=== PATIENT | female | born 1950 | race Caucasian/White ===

== ENCOUNTER → 2017-04-10 | Outpatient (CLI) | payer OTHER ==
[~2017-04-10] MED LIST: NS 100 ML IV 100 ML IV ONE
--- NOTE | 2017-04-10 11:53 | CT ---
Indication: Abdominal pain and hematuria. Exam: CT abdomen and pelvis with contrast. Technique: Axial spiral images were obtained from lung bases through the pubic symphysis after admini stration of IV and oral contrast. Automated dose control was utilized. Findings: There are mild linear densities along the lung bases. The liver is mildly enlarged with fat ty replacement throughout. No focal lesion is seen. The gallbladder has been removed with clips in th e gallbladder fossa. The bile ducts and pancreas are normal. The spleen is unremarkable. The adrenals are normal. The kidneys are normal size and function normally with no hydronephrosis, renal stone, o r mass. The ureters are normal caliber with no adenopathy or ascites . The uterus has been removed wi th no adnexal mass or free fluid. There are diverticula along the colon with no pericolonic inflammat ion. The appendix is not well visualized with no pericecal inflammation . There are degenerative monroy ges seen throughout the spine with no aggressive osseous lesion. Impression: Mild hepatomegaly with fatty replacement throughout . Status post cholecystectomy with no acute abnormality seen. No hydronephrosis or renal stones and no urinary obstruction . Mild diverticulosis of the sigmoid colon with no pericolonic inflammation . Status post hysterectomy with no pelvic mass. Reported By:
== END | disposition home or self-care (01) | DRG 392 ==
LOC: RAD 10:01
PROVIDERS: ATTEND Internal Medicine
DX: K29.70 Gastritis, unspecified, without bleeding (principal); K31.84 Gastroparesis; R10.84 Generalized abdominal pain; R31.9 Hematuria, unspecified; K76.0 Fatty (change of) liver, not elsewhere classified; K57.90 Diverticulosis of intestine, part unspecified, without perforation or abscess without bleeding
CPT/HCPCS: 74177; A4222

== ENCOUNTER → 2017-05-28 | Outpatient (CLI) | payer OTHER ==
[2017-05-28 08:25] LABS: BASOPHILS % (AUTO) 0.3 % (0.2-1.0); EOSINOPHILS # (AUTO) 0.2 x10^3/uL (0.0-0.2); EOSINOPHILS % (AUTO) 3.1 % (0.9-2.9); HEMATOCRIT 39.3 % (36.0-47.0); HEMOGLOBIN 12.9 g/dL (12.0-16.0); LYMPHOCYTES # (AUTO) 1.9 X10^3/uL (1.3-2.9); LYMPHOCYTES % (AUTO) 26.1 % (21.0-51.0); MEAN CORPUSCULAR HEMOGLOBIN 26.8 pg (27.0-34.0); MEAN CORPUSCULAR VOLUME 81.2 fL (80.0-100.0); MEAN PLATELET VOLUME 7.8 fL (7.4-11.0); MONOCYTES # (AUTO) 0.4 x10^3/uL (0.3-0.8); NEUTROPHILS # (AUTO) 4.6 x10^3/uL (2.2-4.8); NEUTROPHILS % (AUTO) 64.5 % (42.0-75.0); PLATELET COUNT 244 X10^3/uL (150.0-450.0); RED BLOOD COUNT 4.83 X10^6/uL (3.5-5.4); RED CELL DISTRIBUTION WIDTH 13.9 % (11.6-16.5); WHITE BLOOD COUNT 7.1 X10^3/uL (3.6-10.0)
[2017-05-28 08:41] LABS: ALBUMIN 4.2 g/dL (3.4-5.0); BILIRUBIN,DIRECT 0.19 mg/dL (0-0.2); TOTAL PROTEIN 7.2 g/dL (6.4-8.2)
--- NOTE | 2017-05-28 10:28 | US ---
History: Abdominal pain and abnormal LFTs. Exams: Diagnostic ultrasound exam of the liver. Technique: GRAYSCALE & DOPPLER IMAGES OF THE LIVER PERFORMED. COMPARISON: Abdominopelvic CT exam dated 04/10/2017. Findings: The liver is normal in size and echogenic in its appearance/echotecture. The liver measures 15 cm in greatest cross-sectional dimension. No dominant or hypoechoic liver mass lesions are apprec iated. The gallbladder is surgically absent. The right kidney is grossly unremarkable. The right kidn ey is normal in size as well. No pathologic intrahepatic biliary duct dilatation is seen. The common bile duct measures within normal limits for age at 9 mm. There is no surrounding ascites or loculated abdominal fluid collections observed. Impression: Liver is normal in size & echogenic/fatty in echotecture. Status post cholecystectomy. Patulous CBD = 9 mm. No dominant liver mass lesions or biliary duct dilatation seen. No ascites is evident. No other abnormalities appreciated. Reported By:
[2017-05-30 21:55] LABS: HEPATITIS A ANTIBODY IGM Negative (Negative)
[2017-06-01 06:20] LABS: HEPATITIS B CORE IGM Negative (Negative); HEPATITIS B SURFACE ANTIGEN Negative (Negative)
[2017-06-01 06:21] LABS: ANTI-NUCLEAR ANTIBODY TEST None Detected (None Detected)
== END ==
LOC: RAD 07:53
PROVIDERS: ATTEND Internal Medicine Gastroenterology
DX: K76.0 Fatty (change of) liver, not elsewhere classified (principal); D64.89 Other specified anemias
CPT/HCPCS: 36415; 76705; 80074; 80076; 82103; 82390; 82525; 82728; 83540; 83550; 84466; 85025; 85610; 86256; 86308

== ENCOUNTER 2020-10-03 17:21 | Inpatient (IN) ==
[2020-10-03 20:59] LABS: BASOPHILS # (AUTO) 0.1 X10^3/uL (0.0-0.1); BASOPHILS % (AUTO) 0.8 % (0.2-1.0); EOSINOPHILS # (AUTO) 0.3 x10^3/uL (0.0-0.2); EOSINOPHILS % (AUTO) 3.1 % (0.9-2.9); HEMATOCRIT 37.5 % (36.0-47.0); HEMOGLOBIN 12.2 g/dL (12.0-16.0); LYMPHOCYTES # (AUTO) 2.2 X10^3/uL (1.3-2.9); MEAN CORPUSCULAR HEMOGLOBIN 25.8 pg (27.0-34.0); MEAN CORPUSCULAR HGB CONC 32.5 g/dL (33.0-35.0); MEAN CORPUSCULAR VOLUME 79.5 fL (80.0-100.0); MEAN PLATELET VOLUME 7.7 fL (7.4-11.0); MONOCYTES # (AUTO) 0.5 x10^3/uL (0.3-0.8); MONOCYTES % (AUTO) 5.1 % (0.0-13.0); NEUTROPHILS # (AUTO) 6.4 x10^3/uL (2.2-4.8); PLATELET COUNT 218 X10^3/uL (150.0-450.0); RED BLOOD COUNT 4.71 X10^6/uL (3.5-5.4); RED CELL DISTRIBUTION WIDTH 15.3 % (11.6-16.5); WHITE BLOOD COUNT 9.5 X10^3/uL (3.6-10.0)
[2020-10-03 21:12] LABS: BLOOD UREA NITROGEN 17 mg/dL (7-18); CALCIUM 8.6 mg/dL (8.5-10.1); CARBON DIOXIDE 21.2 mmol/L (21-32); CHLORIDE 101 mmol/L (98-107); COR NA(FOR HYPERGLY) 144 mmol/L (136-145); CREATININE 1.94 mg/dL (0.55-1.02); SODIUM 137 mmol/L (136-145); eGFR NON BLACK RACES 27 (>60)
--- NOTE | 2020-10-03 21:19 | RAD ---
Lumbar spine three viewsIndication: Lower back painFINDINGSCholecystectomy clips noted. Vertebral body heights are normal, without cortical lucency or malalignment. Disc space narrowing is most pronounced at L5-S1.IMPRESSIONLumbar spine degenerative change without acute osseous abnormality, within limits of radiography.Electronically signed by: REINA ISLAS (Oct 03, 2020 21:17:50)
--- NOTE | 2020-10-03 21:21 | RAD ---
Acute abdomen series-three views supine upright and chestIndication: Abdominal pain and diarrheaCOMPARISONFebruary 22017 CT report.FINDINGSHeart size is prominent. There is no pneumothorax, effusion or dense consolidation. Cholecystectomy clips noted. Gas and stool are seen in the colon. No dilated loop of small bowel identified. Patient zipper and bra clips obscure mild detail. No abnormal calcific density seen.IMPRESSIONNo convincing high-grade obstruction, free air or pneumatosis seen. Heart size is prominent. Overlying clothing material obscures minimal detail.Electronically signed by: REINA ISLAS (Oct 03, 2020 21:19:19)
[2020-10-03 21:46] LABS: CREATINE KINASE 69 Units/L (26-192); CREATINE KINASE MB 1.4 ng/mL (0-4.0)
[2020-10-03 21:47] LABS: TROPONIN I < 0.02 ng/mL (0-1.5)
[2020-10-03] MEDS ORDERED: PROVENTIL NEB TX 0.083% 2.5MG/ 3ML NEB PRN (21:59)
[2020-10-03] MEDS: HumuLIN R SUBCUT PRN (22:35)
[2020-10-03] MEDS: NS 1000 ML 1,000 ML IV SCH (22:44)
[2020-10-03 22:56] VITALS: BMI 31.8
[2020-10-03] MEDS: NEURONTIN CAP 300 MG PO SCH (23:01)
[2020-10-03] MEDS: CRESTOR TAB 10 MG PO SCH (23:01)
[2020-10-03] MEDS: PriLOSEC PO SCH (23:01)
[2020-10-03] MEDS: ULTRAM PO SCH (23:01)
[2020-10-03] MEDS: INVANZ INJ 1 GM VIAL 1 GM in NS 100 ML IV + SPIKE MINIBAG* 100 ML IV SCH (23:03)
[2020-10-04 00:57] LABS: BILIRUBIN,URINE NEGATIVE (NEGATIVE); BLOOD/HEMOGLOBIN,URINE 1+ (NEGATIVE); GLUCOSE, URINE 4+ (NEGATIVE); KETONES,URINE NEGATIVE (NEGATIVE); LEUKOCYTE ESTERASE ,URINE 2+ (NEGATIVE); NITRITES,URINE POSITIVE (NEGATIVE); PROTEIN,URINE 1+ (NEGATIVE); UROBILINOGEN,URINE NORMAL (NORMAL)
[2020-10-04 01:10] LABS: APPEARANCE,URINE CLEAR (CLEAR); BACTERIA,URINE 1+ /HPF (NEGATIVE); COLOR,URINE STRAW (YELLOW); RBC,URINE NONE SEEN /HPF (0-3); SQUAMOUS EPITHELIAL CELL,UR NEGATIVE /HPF (NEGATIVE)
[2020-10-04] MEDS ORDERED: GLUCOPHAGE ONE ×2 (06:01→16:47)
[2020-10-04] MEDS: GLUCOPHAGE PO SCH ×3 (06:03→18:55)
[2020-10-04] MEDS: SYNTHROID 88 mcg TAB PO SCH (06:03)
[2020-10-04 06:14] LABS: BASOPHILS # (AUTO) 0.1 X10^3/uL (0.0-0.1); BASOPHILS % (AUTO) 0.9 % (0.2-1.0); EOSINOPHILS # (AUTO) 0.4 x10^3/uL (0.0-0.2); EOSINOPHILS % (AUTO) 5.2 % (0.9-2.9); HEMOGLOBIN 11.3 g/dL (12.0-16.0); MEAN CORPUSCULAR HEMOGLOBIN 25.9 pg (27.0-34.0); MEAN CORPUSCULAR HGB CONC 33.3 g/dL (33.0-35.0); MEAN CORPUSCULAR VOLUME 77.7 fL (80.0-100.0); MEAN PLATELET VOLUME 7.5 fL (7.4-11.0); MONOCYTES # (AUTO) 0.5 x10^3/uL (0.3-0.8); MONOCYTES % (AUTO) 7.1 % (0.0-13.0); NEUTROPHILS # (AUTO) 4.3 x10^3/uL (2.2-4.8); NEUTROPHILS % (AUTO) 59.8 % (42.0-75.0); PLATELET COUNT 191 X10^3/uL (150.0-450.0); RED BLOOD COUNT 4.37 X10^6/uL (3.5-5.4); RED CELL DISTRIBUTION WIDTH 15.2 % (11.6-16.5); WHITE BLOOD COUNT 7.3 X10^3/uL (3.6-10.0)
[2020-10-04 06:39] LABS: BLOOD UREA NITROGEN 15 mg/dL (7-18); CALCIUM 8.7 mg/dL (8.5-10.1); CARBON DIOXIDE 25.3 mmol/L (21-32); CHLORIDE 109 mmol/L (98-107); CREATININE 1.37 mg/dL (0.55-1.02); SODIUM 144 mmol/L (136-145); eGFR NON BLACK RACES 40 (>60)
[2020-10-04] MEDS ORDERED: COZAAR ONE (07:48)
[2020-10-04] MEDS: ULTRAM PO SCH ×4 (08:18→20:37)
[2020-10-04] MEDS: PriLOSEC PO SCH ×2 (08:20→20:37)
[2020-10-04] MEDS: NEURONTIN CAP 300 MG PO SCH ×2 (08:20→20:36)
--- NOTE | 2020-10-04 10:22 | DR.UPDATE ---
H&P Update History and Physical Update: History and Physical reviewed and patient examined. Changes noted: Yes with the following: TIME SPENT ON CLINICAL ASSESSMENT, REVIEWING LABS AND IMAGING, DECISION MAKING, AND DOCUMENTATION GREATER THAN 75 MINUTES. HAS BEEN TREATED OUTPATIENT FOR A URINARY TRACT INFECTION SINCE 09/12/2020. SHE HAS TAKEN MACROBID 100MG BID X 10 DAYS AND CIPRO 500MG BID X 10 DAYS WITHOUT IMPROVEMENT IN SYMPTOMS. SHE PRESENTED TO THE OFFICE ON 10/03 WITH COMPLAINTS OF GENERALIZED WEAKNESS, LOWER ABDOMINAL PAIN, LOWER BACK PAIN, DIZZINESS, NAUSEA, DECREASED ORAL INTAKE, AND DIARRHEA. WHILE IN THE OFFICE, SHE WAS NOTED TO BE HYPOTENSIVE WITH BP 99/62. HER PMH INCLUDES HYPERLIPIDEMIA, ASTHMA, GERD, GASTROPARESIS, DM II, HYPOTHYROIDISM, CHOLECYSTECTOMY, AND HYSTERECTOMY. DUE TO FAILED OUTPATIENT TREATMENT, WE ADMITTED PATIENT TO THE HOSPITAL FOR FURTHER EVALUATION AND TREATMENT OF UTI, GENERALIZED WEAKNESS, DIZZINESS, ABDOMINAL PAIN. ON ADMISSION, VITALS WERE 98.1-81-18-97%-160/70. LABS WERE OBTAINED. ABNORMAL LAB VALUES INCLUDE THE FOLLOWING: CREATININE 1.94, GFR 27, GLUCOSE 394. URINALYSIS REVEALED: WBC 10-20, RBC NONE SEEN, LEUKOCYTES 2+, BACTERIA 1+, NITRITES POSITIVE, OCCULT BLOOD 1+, GLUCOSE 4+, PROTEIN 1+. URINE AND BLOOD CULTURES WERE SET UP. COVID, INFLUENZA, AND RSV NEGATIVE. ABDOMINAL XRAY OBTAINED AND REVEALED: No convincing high-grade obstruction, free air or pneumatosis seen. Heart size is prominent. Overlying clothing material obscures minimal detail. LUMBAR XRAY REVEALED: Lumbar spine degenerative change without acute osseous abnormality, within limits of radiography. EKG REVEALED: SINUS RHYTHM WITH HR 82. SHE WAS STARTED ON NORMAL SALINE AT 80 ML/HR, INVANZ 1G IV DAILY, HUMULIN R SLIDING SCALE, SYNTHROID 88MCG PO DAILY, COZAAR 50MG PO DAILY, GLUCOPHAGE 500MG PO BID WM, OTBS ACHS, PRILOSEC 40MG PO BID, CRESTOR 10MG PO HS, ULTRAM 50MG PO QID, GABAPENTIN 300MG PO BID, AND ALBUTEROL NEB TX QID. WE WILL OBTAIN STOOL STUDIES OTHERWISE, WE PLAN TO FOLLOW UP WITH AM LABS AND CONTINUE TO MONITOR. TIME SPENT ON CLINICAL ASSESSMENT, REVIEWING LABS AND IMAGING, DECISION MAKING, AND DOCUMENTATION GREATER THAN 75 MINUTES. Prescription drug monitoring program results: PDMP was not reviewed H&P Reviewed: Yes Patient was examined?: Yes
[2020-10-04 11:38] LABS: ALANINE AMINOTRANSFERASE 24 Units/L (12-78); ALBUMIN 3.9 g/dL (3.4-5.0); ALKALINE PHOSPHATASE 85 Units/L (46-116); ASPARTATE AMINO TRANSFERASE 22 Units/L (15-37); TOTAL PROTEIN 6.9 g/dL (6.4-8.2)
[2020-10-04 11:44] LABS: ALANINE AMINOTRANSFERASE 21 Units/L (12-78); ALBUMIN 3.5 g/dL (3.4-5.0); ALKALINE PHOSPHATASE 79 Units/L (46-116); ASPARTATE AMINO TRANSFERASE 15 Units/L (15-37); TOTAL PROTEIN 6.3 g/dL (6.4-8.2)
[2020-10-04] MEDS: COZAAR PO SCH (15:14)
[2020-10-04] MEDS: SNACK - Diabetic Appropriate PO SCH (20:36)
[2020-10-04] MEDS: CRESTOR TAB 10 MG PO SCH (20:36)
[2020-10-04] MEDS ORDERED: LANTUS SC SCH (21:00)
[2020-10-04] MEDS: NS 1000 ML 1,000 ML IV SCH (22:48)
[2020-10-04] MEDS: INVANZ INJ 1 GM VIAL 1 GM in NS 100 ML IV + SPIKE MINIBAG* 100 ML IV SCH (22:48)
[2020-10-05] MEDS: SYNTHROID 88 mcg TAB PO SCH (05:44)
[2020-10-05 06:11] LABS: BASOPHILS # (AUTO) 0.1 X10^3/uL (0.0-0.1); BASOPHILS % (AUTO) 1.1 % (0.2-1.0); EOSINOPHILS # (AUTO) 0.4 x10^3/uL (0.0-0.2); EOSINOPHILS % (AUTO) 7.8 % (0.9-2.9); HEMATOCRIT 33.2 % (36.0-47.0); LYMPHOCYTES # (AUTO) 1.9 X10^3/uL (1.3-2.9); LYMPHOCYTES % (AUTO) 32.7 % (21.0-51.0); MEAN CORPUSCULAR HEMOGLOBIN 25.9 pg (27.0-34.0); MEAN CORPUSCULAR VOLUME 78.6 fL (80.0-100.0); MEAN PLATELET VOLUME 7.5 fL (7.4-11.0); MONOCYTES # (AUTO) 0.4 x10^3/uL (0.3-0.8); NEUTROPHILS # (AUTO) 2.9 x10^3/uL (2.2-4.8); NEUTROPHILS % (AUTO) 51.4 % (42.0-75.0); PLATELET COUNT 166 X10^3/uL (150.0-450.0); RED BLOOD COUNT 4.23 X10^6/uL (3.5-5.4); RED CELL DISTRIBUTION WIDTH 15.8 % (11.6-16.5); WHITE BLOOD COUNT 5.7 X10^3/uL (3.6-10.0)
[2020-10-05 06:26] LABS: ALANINE AMINOTRANSFERASE 22 Units/L (12-78); ALBUMIN 3.3 g/dL (3.4-5.0); ALKALINE PHOSPHATASE 79 Units/L (46-116); ASPARTATE AMINO TRANSFERASE 18 Units/L (15-37); BLOOD UREA NITROGEN 11 mg/dL (7-18); CALCIUM 8.1 mg/dL (8.5-10.1); CARBON DIOXIDE 26.1 mmol/L (21-32); CHLORIDE 111 mmol/L (98-107); COR CA(FOR HYPOALB) 8.7 mg/dL (8.5-10.1); COR NA(FOR HYPERGLY) 146 mmol/L (136-145); CREATININE 1.09 mg/dL (0.55-1.02); SODIUM 144 mmol/L (136-145); TOTAL PROTEIN 5.9 g/dL (6.4-8.2); eGFR NON BLACK RACES 52 (>60)
[2020-10-05] MEDS: NS 1000 ML 1,000 ML IV SCH ×3 (06:56→13:41)
[2020-10-05] MEDS: NEURONTIN CAP 300 MG PO SCH ×2 (08:50→21:46)
[2020-10-05] MEDS: COZAAR PO SCH (08:50)
[2020-10-05] MEDS: PriLOSEC PO SCH ×2 (08:51→21:47)
[2020-10-05] MEDS: ULTRAM PO SCH ×4 (08:51→21:47)
--- NOTE | 2020-10-05 09:57 | PCM.PROG ---
Progress Note - Progress Note for Day of Date of Exam: 10/05/20 - Subjective Subjective: WAS ADMITTED FOR TREATMENT OF UTI, ABDOMINAL PAIN, GENERALIZED WEAKNESS, DIARRHEA, DIZZINESS. TODAY, SHE IS ALERT AND ORIENTED, LYING IN BED ON MORNING ROUNDS. SHE CONTINUES WITH COMPLAINTS OF LOWER ABDOMINAL PAIN, LOWER BACK PAIN, AND WEAKNESS. ON EXAMINATION, HEART IS REGULAR IN RATE AND RHYTHM. BILATERAL LUNGS ARE NOTED TO HAVE DIMINISHED LUNG SOUNDS THROUGHOUT. ABDOMEN IS ROUND, SOFT, AND NOTED WITH MILD SUPRAPUBIC TENDERNESS. NORMAL BOWEL SOUNDS ARE NOTED IN ALL QUADRANTS. HER VITALS THIS MORNING ARE: 98.1-91-18-97%-120/65. LABS WERE OBTAINED. ABNORMAL LAB VALUES INCLUDE THE FOLLOWING: HGB 11.0, HCT 33.2, CHLORIDE 111, CREATININE 1.09, GLUCOSE 169, CALCIUM 8.1, TOTAL PROTEIN 5.9, ALBUMIN 3.3. URINE AND BLOOD CULTURES ARE PENDING. SHE HAS NOT BEEN ABLE TO GIVE A STOOL SAMPLE YET. SHE IS CURRENTLY RECEIVING NORMAL SALINE AT 80 ML/HR, INVANZ 1G IV DAILY, HUMULIN R SLIDING SCALE, SYNTHROID 88MCG PO DAILY, COZAAR 50MG PO DAILY, GLUCOPHAGE 500MG PO BID WM, OTBS ACHS, PRILOSEC 40MG PO BID, CRESTOR 10MG PO HS, ULTRAM 50MG PO QID, GABAPENTIN 300MG PO BID, AND ALBUTEROL NEB TX QID. WE WILL CONTINUE WITH CURRENT PLAN OF CARE TODAY. WE WILL PLAN TO OBTAIN AN ABDOMEN/PELVIS CT WITH CONTRAST IN THE MORNING. OTHERWISE, WE WILL FOLLOW UP WITH AM LABS AND CONTINUE TO MONITOR. TIME SPENT ON CLINICAL ASSESSMENT, REVIEWING LABS AND IMAGING, DECISION MAKING, AND DOCUMENTATION GREATER THAN 45 MINUTES. - Past Medical Family Social History Past Med/Fam/Surg Hx: No changes since H&P Allergies: Allergies Penicillins Allergy (Verified 10/03/20 17:33) medical records. Sulfa (Sulfonamide Antibiotics) Allergy (Verified 10/03/20 17:35) - Review of Systems ROS: No change since H&P - Vital Signs and I&O's Vital Signs: Temperature 98.1 F Pulse Rate [Brachial] 91 Pulse Rate 78 Respiratory Rate 20 Blood Pressure [Left Arm] 120/65 O2 Sat by Pulse Oximetry 97 Intake and Output: Intake & Output 10/02/20 10/03/20 10/04/20 10/05/20 11:59 11:59 11:59 11:59 Intake Total 863 / 863 3280 / 3280 Output Total Balance 861 / 861 3280 / 3280 - Physical Exam Oriented: Normal Eyes: Normal Ear: Normal Nose: Normal Throat: Normal Respiratory: Generalized, Diminished Cardiovascular: Normal : Normal Auscultation: Bowel Sounds: Normal Palpation: Normal Tenderness: Suprapubic, Mild. negative: Rebound, Guarding, Rigidity Skin: Normal Musculoskeletal: Normal Psychiatric: Normal Mood Description: Calm Affect: Normal Speech Pattern: Clear, Appropriate - Laboratory and Diagnostics Result Diagrams: 10/05/20 05:22 10/05/20 05:22 Labs: 10/04/20 05:47 Urine,Clean Catch Urine Culture - Preliminary Laboratory WBC 5.7 X10^3/uL (3.6-10.0) 10/05/20 05:22 RBC 4.23 X10^6/uL (3.5-5.4) 10/05/20 05:22 Hgb 11.0 g/dL (12.0-16.0) L 10/05/20 05:22 Hct 33.2 % (36.0-47.0) L 10/05/20 05:22 MCV 78.6 fL (80.0-100.0) L 10/05/20 05:22 MCH 25.9 pg (27.0-34.0) L 10/05/20 05:22 MCHC 33.0 g/dL (33.0-35.0) 10/05/20 05:22 RDW 15.8 % (11.6-16.5) 10/05/20 05:22 Plt Count 166 X10^3/uL (150.0-450.0) 10/05/20 05:22 MPV 7.5 fL (7.4-11.0) 10/05/20 05:22 Neut % (Auto) 51.4 % (42.0-75.0) 10/05/20 05:22 Lymph % (Auto) 32.7 % (21.0-51.0) 10/05/20 05:22 [place] % (Auto) 7.0 % (0.0-13.0) 10/05/20 05:22 Eos % (Auto) 7.8 % (0.9-2.9) H 10/05/20 05:22 Baso % (Auto) 1.1 % (0.2-1.0) H 10/05/20 05:22 Neut # (Auto) 2.9 x10^3/uL (2.2-4.8) 10/05/20 05:22 Lymph # (Auto) 1.9 X10^3/uL (1.3-2.9) 10/05/20 05:22 [place] # (Auto) 0.4 x10^3/uL (0.3-0.8) 10/05/20 05:22 Eos # (Auto) 0.4 x10^3/uL (0.0-0.2) H 10/05/20 05:22 Baso # (Auto) 0.1 X10^3/uL (0.0-0.1) 10/05/20 05:22 Absolute Nucleated RBC 0.1 /100WBC 10/05/20 05:22 Sodium 144 mmol/L (136-145) 10/05/20 05:22 Corrected Sodium 146 mmol/L (136-145) H 10/05/20 05:22 Potassium 4.6 mmol/L (3.5-5.1) 10/05/20 05:22 Chloride 111 mmol/L (98-107) H 10/05/20 05:22 Carbon Dioxide 26.1 mmol/L (21-32) 10/05/20 05:22 BUN 11 mg/dL (7-18) 10/05/20 05:22 Creatinine 1.09 mg/dL (0.55-1.02) H 10/05/20 05:22 Est GFR (MDRD) Af Amer > 60 (>60) 10/05/20 05:22 Est GFR (MDRD) Non-Af 52 (>60) L 10/05/20 05:22 Glucose 169 mg/dL (65-99) H 10/05/20 05:22 POC Glucose (mg/dL) 158 mg/dL (65-99) H 10/05/20 05:16 Calcium 8.1 mg/dL (8.5-10.1) L 10/05/20 05:22 Corrected Calcium 8.7 mg/dL (8.5-10.1) 10/05/20 05:22 Total Bilirubin 0.30 mg/dL (0.2-1.0) 10/05/20 05:22 AST 18 Units/L (15-37) 10/05/20 05:22 ALT 22 Units/L (12-78) 10/05/20 05:22 Alkaline Phosphatase 79 Units/L (46-116) 10/05/20 05:22 Creatine Kinase 69 Units/L (26-192) 10/03/20 20:46 CK-MB (CK-2) 1.4 ng/mL (0-4.0) 10/03/20 20:46 CK/CKMB % Calc 2.0 % (<4) 10/03/20 20:46 Troponin I < 0.02 ng/mL (0-1.5) 10/03/20 20:46 Total Protein 5.9 g/dL (6.4-8.2) L 10/05/20 05:22 Albumin 3.3 g/dL (3.4-5.0) L 10/05/20 05:22 Globulin 2.6 g/dL (2.5-4.5) 10/05/20 05:22 Albumin/Globulin Ratio 1.3 Ratio (1.1-2.1) 10/05/20 05:22 Specimen Type Random urine 10/04/20 00:28 Urine Color Straw (YELLOW) 10/04/20 00:28 Urine Appearance Clear (CLEAR) 10/04/20 00:28 Urine pH 5.0 (5.0 - 8.0) 10/04/20 00:28 Ur Specific [place] 1.015 (1.000-1.030) 10/04/20 00:28 Urine Protein 1+ (NEGATIVE) 10/04/20 00:28 Urine Glucose (UA) 4+ (NEGATIVE) 10/04/20 00:28 Urine Ketones Negative (NEGATIVE) 10/04/20 00:28 Urine Occult Blood 1+ (NEGATIVE) 10/04/20 00:28 Urine Nitrite Positive (NEGATIVE) 10/04/20 00:28 Urine Bilirubin Negative (NEGATIVE) 10/04/20 00:28 Urine Urobilinogen Normal (NORMAL) 10/04/20 00:28 Ur Leukocyte Esterase 2+ (NEGATIVE) 10/04/20 00:28 Urine RBC None seen /HPF (0-3) 10/04/20 00:28 Urine WBC 10-20 /HPF (0-5) A 10/04/20 00:28 Ur Squamous Epith Cells Negative /HPF (NEGATIVE) 10/04/20 00:28 Urine Bacteria 1+ /HPF (NEGATIVE) 10/04/20 00:28 Ur Culture Indicated? No/not indicated 10/04/20 00:28 SARS-CoV-2 (PCR) Negative (NEGATIVE) 10/03/20 20:33 Influenza Type A (PCR) Negative (NEGATIVE) 10/03/20 20:33 Influenza Type B (PCR) Negative (NEGATIVE) 10/03/20 20:33 RSV (PCR) Negative (NEGATIVE) 10/03/20 20:33 - Plan (1) Urinary tract infection Status: Acute Qualifiers: Urinary tract infection type: acute cystitis Hematuria presence: without hematuria Qualified Code(s): N30.00 - Acute cystitis without hematuria Plan: NORMAL SALINE AT 80 ML/HR, INVANZ 1G IV DAILY, HUMULIN R SLIDING SCALE, SYNTHROID 88MCG PO DAILY, COZAAR 50MG PO DAILY, GLUCOPHAGE 500MG PO BID WM, OTBS ACHS, PRILOSEC 40MG PO BID, CRESTOR 10MG PO HS, ULTRAM 50MG PO QID, GABAPENTIN 300MG PO BID, AND ALBUTEROL NEB TX QID. (2) Abdominal pain Status: Acute Qualifiers: Abdominal location: lower abdomen, unspecified Qualified Code(s): R10.30 - Lower abdominal pain, unspecified (3) Lower back pain Status: Acute Qualifiers: Chronicity: acute Back pain laterality: unspecified Sciatica presence: unspecified whether sciatica present Qualified Code(s): M54.5 - Low back pain (4) Generalized weakness Status: Acute (5) Diabetes mellitus Status: Chronic Qualifiers: Diabetes mellitus type: type 2 Diabetes mellitus termite treater insulin use: with termite treater use Diabetes mellitus complication status: with hyperglycemia Qualified Code(s): E11.65 - Type 2 diabetes mellitus with hyperglycemia; Z79.4 - skilled nursing (current) use of insulin (6) Hyperlipidemia Status: Chronic Qualifiers: Hyperlipidemia type: mixed hyperlipidemia Qualified Code(s): E78.2 - Mixed hyperlipidemia (7) Hypothyroidism Status: Chronic Qualifiers: Hypothyroidism type: acquired Qualified Code(s): E03.9 - Hypothyroidism, unspecified (8) Gastroparesis Status: Chronic
[2020-10-05] MEDS: HumuLIN R SUBCUT PRN ×2 (11:17→16:50)
[2020-10-05] MEDS: PATIENT'S HOME MEDICATION PO SCH ×2 (11:18→16:27)
[2020-10-05 11:31] LABS: CRYPTOSPORIDIUM PARVUM ANTIGEN NEGATIVE (NEGATIVE); GIARDIA LAMBLIA ANTIGEN NEGATIVE (NEGATIVE)
[2020-10-05] MEDS: SNACK - Diabetic Appropriate PO SCH (20:12)
[2020-10-05] MEDS: CRESTOR TAB 10 MG PO SCH (21:46)
[2020-10-05] MEDS: INVANZ INJ 1 GM VIAL 1 GM in NS 100 ML IV + SPIKE MINIBAG* 100 ML IV SCH (22:45)
[2020-10-06] MEDS: NS 1000 ML 1,000 ML IV SCH ×3 (00:22→18:46)
[2020-10-06] MEDS: PATIENT'S HOME MEDICATION PO SCH ×3 (06:08→16:48)
[2020-10-06] MEDS: SYNTHROID 88 mcg TAB PO SCH (06:08)
[2020-10-06 07:02] LABS: BASOPHILS # (AUTO) 0.1 X10^3/uL (0.0-0.1); BASOPHILS % (AUTO) 0.9 % (0.2-1.0); EOSINOPHILS # (AUTO) 0.4 x10^3/uL (0.0-0.2); EOSINOPHILS % (AUTO) 7.7 % (0.9-2.9); HEMATOCRIT 33.5 % (36.0-47.0); HEMOGLOBIN 10.9 g/dL (12.0-16.0); LYMPHOCYTES # (AUTO) 1.6 X10^3/uL (1.3-2.9); LYMPHOCYTES % (AUTO) 29.6 % (21.0-51.0); MEAN CORPUSCULAR HEMOGLOBIN 25.6 pg (27.0-34.0); MEAN CORPUSCULAR HGB CONC 32.6 g/dL (33.0-35.0); MEAN CORPUSCULAR VOLUME 78.5 fL (80.0-100.0); MEAN PLATELET VOLUME 7.5 fL (7.4-11.0); MONOCYTES # (AUTO) 0.4 x10^3/uL (0.3-0.8); MONOCYTES % (AUTO) 7.1 % (0.0-13.0); NEUTROPHILS % (AUTO) 54.7 % (42.0-75.0); PLATELET COUNT 169 X10^3/uL (150.0-450.0); RED BLOOD COUNT 4.27 X10^6/uL (3.5-5.4); RED CELL DISTRIBUTION WIDTH 15.3 % (11.6-16.5); WHITE BLOOD COUNT 5.4 X10^3/uL (3.6-10.0)
[2020-10-06 07:20] LABS: ALANINE AMINOTRANSFERASE 24 Units/L (12-78); ALBUMIN 3.2 g/dL (3.4-5.0); ALKALINE PHOSPHATASE 78 Units/L (46-116); ASPARTATE AMINO TRANSFERASE 19 Units/L (15-37); BLOOD UREA NITROGEN 7 mg/dL (7-18); CARBON DIOXIDE 27.6 mmol/L (21-32); CHLORIDE 108 mmol/L (98-107); COR CA(FOR HYPOALB) 8.6 mg/dL (8.5-10.1); COR NA(FOR HYPERGLY) 146 mmol/L (136-145); CREATININE 0.99 mg/dL (0.55-1.02); SODIUM 143 mmol/L (136-145); TOTAL PROTEIN 5.9 g/dL (6.4-8.2); eGFR NON BLACK RACES 59 (>60)
[2020-10-06] MEDS: COZAAR PO SCH (09:37)
[2020-10-06] MEDS: ULTRAM PO SCH ×4 (09:37→21:43)
[2020-10-06] MEDS: NEURONTIN CAP 300 MG PO SCH ×2 (09:37→21:40)
[2020-10-06] MEDS: PriLOSEC PO SCH ×2 (09:37→21:41)
--- NOTE | 2020-10-06 12:32 | PCM.PROG ---
Progress Note Progress Note for Day of Date of Exam: 10/06/20 Subjective Subjective: Patient seen at bedside, no acute events overnight. She states she is feeling better. She had 3-4 episodes of loose stools overnight. She states it has slowed down and started to form. Denies nausea or vomiting. Denies abdominal pain. She had a CTAP this morning so has been NPO. Labs: WBC 5.4 Hgb 10.9 BUN/Cr: 7/0.99 FOBT + Campy (-) C diff (-) Lumbar XR: DDD Urine Cx negative CTAP pending Plan: follow up on CTAP, start full liquid diet. Continue hydration with NS. Continue IV antibiotics for UTI. Monitor for worsening diarrhea. Continue anti- emetics. Monitor AM labs and imaging. Advance diet as tolerated. Continue home medications. Past Medical Family Social History Past Med/Fam/Surg Hx: No changes since H&P Allergies: Allergies Penicillins Allergy (Verified 10/03/20 17:33) medical records. Sulfa (Sulfonamide Antibiotics) Allergy (Verified 10/03/20 17:35) Review of Systems ROS: No change since H&P Vital Signs and I&O's Vital Signs: Temperature 97.8 F Pulse Rate [Brachial] 81 Pulse Rate 90 Respiratory Rate 14 Blood Pressure [Left Arm] 135/62 O2 Sat by Pulse Oximetry 97 Intake and Output: Intake & Output 10/03/20 10/04/20 10/05/20 10/06/20 23:59 23:59 23:59 23:59 Intake Total 183 / 183 1830 / 1830 3850 / 3850 1947 Output Total 0 / 0 2 / 2 Balance 183 / 183 1828 / 1828 3850 / 3850 1947 Physical Exam Oriented: Normal Eyes: Normal Ear: Normal Nose: Normal Throat: Normal Respiratory: Generalized and Diminished Cardiovascular: Normal Auscultation: Bowel Sounds: Normal Palpation: Normal Tenderness: Normal; negative Rebound, Guarding and Rigidity Skin: Normal Musculoskeletal: Normal Psychiatric: Normal Mood Description: Calm Affect: Normal Speech Pattern: Clear and Appropriate Laboratory and Diagnostics Result Diagrams: 10/06/20 06:06 10/06/20 06:06 Labs: 10/04/20 09:32 Blood Blood Culture - Preliminary 10/04/20 09:15 Blood Blood Culture - Preliminary 10/05/20 10:20 Stool Stool Culture - Preliminary 10/05/20 10:20 Stool - Final 10/04/20 05:47 Urine,Clean Catch Urine Culture - Final Laboratory WBC 5.4 X10^3/uL (3.6-10.0) 10/06/20 06:06 RBC 4.27 X10^6/uL (3.5-5.4) 10/06/20 06:06 Hgb 10.9 g/dL (12.0-16.0) L 10/06/20 06:06 Hct 33.5 % (36.0-47.0) L 10/06/20 06:06 MCV 78.5 fL (80.0-100.0) L 10/06/20 06:06 MCH 25.6 pg (27.0-34.0) L 10/06/20 06:06 MCHC 32.6 g/dL (33.0-35.0) L 10/06/20 06:06 RDW 15.3 % (11.6-16.5) 10/06/20 06:06 Plt Count 169 X10^3/uL (150.0-450.0) 10/06/20 06:06 MPV 7.5 fL (7.4-11.0) 10/06/20 06:06 Neut % (Auto) 54.7 % (42.0-75.0) 10/06/20 06:06 Lymph % (Auto) 29.6 % (21.0-51.0) 10/06/20 06:06 [place] % (Auto) 7.1 % (0.0-13.0) 10/06/20 06:06 Eos % (Auto) 7.7 % (0.9-2.9) H 10/06/20 06:06 Baso % (Auto) 0.9 % (0.2-1.0) 10/06/20 06:06 Neut # (Auto) 3.0 x10^3/uL (2.2-4.8) 10/06/20 06:06 Lymph # (Auto) 1.6 X10^3/uL (1.3-2.9) 10/06/20 06:06 [place] # (Auto) 0.4 x10^3/uL (0.3-0.8) 10/06/20 06:06 Eos # (Auto) 0.4 x10^3/uL (0.0-0.2) H 10/06/20 06:06 Baso # (Auto) 0.1 X10^3/uL (0.0-0.1) 10/06/20 06:06 Absolute Nucleated RBC 0.1 /100WBC 10/06/20 06:06 Sodium 143 mmol/L (136-145) 10/06/20 06:06 Corrected Sodium 146 mmol/L (136-145) H 10/06/20 06:06 Potassium 4.2 mmol/L (3.5-5.1) 10/06/20 06:06 Chloride 108 mmol/L (98-107) H 10/06/20 06:06 Carbon Dioxide 27.6 mmol/L (21-32) 10/06/20 06:06 BUN 7 mg/dL (7-18) 10/06/20 06:06 Creatinine 0.99 mg/dL (0.55-1.02) 10/06/20 06:06 Est GFR (MDRD) Af Amer > 60 (>60) 10/06/20 06:06 Est GFR (MDRD) Non-Af 59 (>60) 10/06/20 06:06 Glucose 208 mg/dL (65-99) H 10/06/20 06:06 POC Glucose (mg/dL) 196 mg/dL (65-99) H 10/06/20 05:47 Calcium 8.0 mg/dL (8.5-10.1) L 10/06/20 06:06 Corrected Calcium 8.6 mg/dL (8.5-10.1) 10/06/20 06:06 Total Bilirubin 0.40 mg/dL (0.2-1.0) 10/06/20 06:06 AST 19 Units/L (15-37) 10/06/20 06:06 ALT 24 Units/L (12-78) 10/06/20 06:06 Alkaline Phosphatase 78 Units/L (46-116) 10/06/20 06:06 Creatine Kinase 69 Units/L (26-192) 10/03/20 20:46 CK-MB (CK-2) 1.4 ng/mL (0-4.0) 10/03/20 20:46 CK/CKMB % Calc 2.0 % (<4) 10/03/20 20:46 Troponin I < 0.02 ng/mL (0-1.5) 10/03/20 20:46 Total Protein 5.9 g/dL (6.4-8.2) L 10/06/20 06:06 Albumin 3.2 g/dL (3.4-5.0) L 10/06/20 06:06 Globulin 2.7 g/dL (2.5-4.5) 10/06/20 06:06 Albumin/Globulin Ratio 1.2 Ratio (1.1-2.1) 10/06/20 06:06 Specimen Type Random urine 10/04/20 00:28 Urine Color Straw (YELLOW) 10/04/20 00:28 Urine Appearance Clear (CLEAR) 10/04/20 00:28 Urine pH 5.0 (5.0 - 8.0) 10/04/20 00:28 Ur Specific [place] 1.015 (1.000-1.030) 10/04/20 00:28 Urine Protein 1+ (NEGATIVE) 10/04/20 00:28 Urine Glucose (UA) 4+ (NEGATIVE) 10/04/20 00:28 Urine Ketones Negative (NEGATIVE) 10/04/20 00:28 Urine Occult Blood 1+ (NEGATIVE) 10/04/20 00:28 Urine Nitrite Positive (NEGATIVE) 10/04/20 00:28 Urine Bilirubin Negative (NEGATIVE) 10/04/20 00:28 Urine Urobilinogen Normal (NORMAL) 10/04/20 00:28 Ur Leukocyte Esterase 2+ (NEGATIVE) 10/04/20 00:28 Urine RBC None seen /HPF (0-3) 10/04/20 00:28 Urine WBC 10-20 /HPF (0-5) A 10/04/20 00:28 Ur Squamous Epith Cells Negative /HPF (NEGATIVE) 10/04/20 00:28 Urine Bacteria 1+ /HPF (NEGATIVE) 10/04/20 00:28 Ur Culture Indicated? No/not indicated 10/04/20 00:28 Stool Description 40g brown soft forme 10/05/20 10:20 Stool Description Brown soft formed 10/05/20 10:20 Stl Occult Blood (IFOB) Positive (NEGATIVE) A 10/05/20 10:20 Stool for White Cells Negative (NEGATIVE) 10/05/20 10:20 Stl C. diff Tox B Gene Negative (NEGATIVE) 10/05/20 10:20 Stl C. diff [id number] Presumptive negative (NEGATIVE) 10/05/20 10:20 Stool H. pylori Ag Negative (NEGATIVE) 10/05/20 10:20 SARS-CoV-2 (PCR) Negative (NEGATIVE) 10/03/20 20:33 Cryptosporid parvum Ag Negative (NEGATIVE) 10/05/20 10:20 Giardia lamblia Ag Negative (NEGATIVE) 10/05/20 10:20 Influenza Type A (PCR) Negative (NEGATIVE) 10/03/20 20:33 Influenza Type B (PCR) Negative (NEGATIVE) 10/03/20 20:33 RSV (PCR) Negative (NEGATIVE) 10/03/20 20:33 Plan (1) Urinary tract infection: Status: Acute Qualifiers: Hematuria presence: without hematuria Urinary tract infection type: acute cystitis Qualified Code(s): N30.00 - Acute cystitis without hematuria (2) Abdominal pain: Status: Acute Qualifiers: Abdominal location: lower abdomen, unspecified Qualified Code(s): R10.30 - Lower abdominal pain, unspecified (3) Lower back pain: Status: Acute Qualifiers: Back pain laterality: unspecified Chronicity: acute Sciatica presence: unspecified whether sciatica present Qualified Code(s): M54.5 - Low back pain (4) Generalized weakness: Status: Acute (5) Diabetes mellitus: Status: Chronic Qualifiers: Diabetes mellitus complication status: with hyperglycemia Diabetes mellitus chcf insulin use: with intermediate manager use Diabetes mellitus type: type 2 Qualified Code(s): E11.65 - Type 2 diabetes mellitus with hyperglycemia; Z79.4 - rat exterminator (current) use of insulin (6) Hyperlipidemia: Status: Chronic Qualifiers: Hyperlipidemia type: mixed hyperlipidemia Qualified Code(s): E78.2 - Mixed hyperlipidemia (7) Hypothyroidism: Status: Chronic Qualifiers: Hypothyroidism type: acquired Qualified Code(s): E03.9 - Hypothyroidism, unspecified (8) Gastroparesis: Status: Chronic
--- NOTE | 2020-10-06 13:12 | CT ---
HISTORYABD PAIN, DIARRHEASTUDYABDOMEN/PELVIS WITH CONCOMPARISONNoneTECHNIQUEMultiple axial images of the abdomen and pelvis were obtained from the lung bases to the pubic symphysis after the administration of IV contrast. Dose reduction techniques including Automated Exposure Control (AEC) and adjustment of mA and kV were utilized.FINDINGSThe visualized portions of the lung bases are unremarkable . The spleen, pancreas, kidneys, and adrenal glands are unremarkable in their CT appearance. The liver demonstrates mild probable fatty infiltration. The gallbladder is unremarkable in its CT appearance . No significant mesenteric lymphadenopathy or stranding can be observed. No free fluid or free air is seen within the abdomen. No bowel wall thickening or bowel dilatation is present. The colon is unremarkable. Specifically, there is no diverticulosis noted within the sigmoid colon. The appendix is not seen but there are no secondary signs of appendicitis. The urinary bladder is grossly unremarkable. The bony structures are grossly intact.IMPRESSIONProbable fatty liver otherwise negative exam.Electronically signed by: ASAEL CHRISTOPHER (Oct 06, 2020 13:10:07)
[2020-10-06] MEDS: HumuLIN R SUBCUT PRN (16:48)
[2020-10-06] MEDS: SNACK - Diabetic Appropriate PO SCH (20:00)
[2020-10-06] MEDS: CRESTOR TAB 10 MG PO SCH (21:39)
[2020-10-06] MEDS: INVANZ INJ 1 GM VIAL 1 GM in NS 100 ML IV + SPIKE MINIBAG* 100 ML IV SCH (23:04)
[2020-10-07 05:58] LABS: BASOPHILS # (AUTO) 0.1 X10^3/uL (0.0-0.1); BASOPHILS % (AUTO) 1.1 % (0.2-1.0); EOSINOPHILS # (AUTO) 0.4 x10^3/uL (0.0-0.2); EOSINOPHILS % (AUTO) 6.4 % (0.9-2.9); HEMATOCRIT 33.7 % (36.0-47.0); HEMOGLOBIN 10.9 g/dL (12.0-16.0); LYMPHOCYTES # (AUTO) 1.6 X10^3/uL (1.3-2.9); LYMPHOCYTES % (AUTO) 27.4 % (21.0-51.0); MEAN CORPUSCULAR HEMOGLOBIN 25.5 pg (27.0-34.0); MEAN CORPUSCULAR HGB CONC 32.4 g/dL (33.0-35.0); MEAN CORPUSCULAR VOLUME 78.9 fL (80.0-100.0); MEAN PLATELET VOLUME 7.5 fL (7.4-11.0); MONOCYTES # (AUTO) 0.4 x10^3/uL (0.3-0.8); MONOCYTES % (AUTO) 7.3 % (0.0-13.0); NEUTROPHILS # (AUTO) 3.3 x10^3/uL (2.2-4.8); NEUTROPHILS % (AUTO) 57.8 % (42.0-75.0); PLATELET COUNT 170 X10^3/uL (150.0-450.0); RED BLOOD COUNT 4.27 X10^6/uL (3.5-5.4); RED CELL DISTRIBUTION WIDTH 15.2 % (11.6-16.5); WHITE BLOOD COUNT 5.7 X10^3/uL (3.6-10.0)
[2020-10-07] MEDS: PATIENT'S HOME MEDICATION PO SCH ×2 (06:00→10:58)
[2020-10-07 06:15] LABS: ALBUMIN 3.3 g/dL (3.4-5.0); CARBON DIOXIDE 27.3 mmol/L (21-32); COR CA(FOR HYPOALB) 8.6 mg/dL (8.5-10.1); CREATININE 1.15 mg/dL (0.55-1.02)
[2020-10-07] MEDS: HumuLIN R SUBCUT PRN (06:25)
[2020-10-07] MEDS: SYNTHROID 88 mcg TAB PO SCH (06:30)
[2020-10-07] MEDS: NS 1000 ML 1,000 ML IV SCH (06:58)
[2020-10-07 08:30] VITALS: BP 134/72
[2020-10-07] MEDS: PriLOSEC PO SCH (09:41)
[2020-10-07] MEDS: ULTRAM PO SCH (09:41)
[2020-10-07] MEDS: COZAAR PO SCH (09:41)
[2020-10-07] MEDS: NEURONTIN CAP 300 MG PO SCH (09:41)
--- NOTE | 2020-10-07 10:27 | W.DIS.FURT ---
Summary of Discharge Admission Diagnosis Patient Problems (Updated 10/05/20 @ 09:57 by Yury Leahy) Urinary tract infection (Acute) N39.0 Abdominal pain (Acute) R10.9 Lower back pain (Acute) M54.5 Generalized weakness (Acute) R53.1 Diabetes mellitus (Chronic) E11.9 Hyperlipidemia (Chronic) E78.5 Hypothyroidism (Chronic) E03.9 Gastroparesis (Chronic) K31.84 Vital Signs: Vital Signs (72 hours) 10/04/20 12:00 10/04/20 13:42 10/04/20 14:42 Temperature 97.9 F Pulse Rate Pulse Rate [Brachial] 87 Respiratory Rate 18 18 16 Blood Pressure [Left Arm] 125/60 O2 Sat by Pulse Oximetry 97 10/04/20 16:00 10/04/20 17:13 10/04/20 18:13 Temperature 97.4 F L Pulse Rate Pulse Rate [Brachial] 86 Respiratory Rate 18 20 16 Blood Pressure [Left Arm] 132/66 O2 Sat by Pulse Oximetry 97 10/04/20 20:00 10/04/20 20:37 10/04/20 21:37 Temperature 97.8 F Pulse Rate Pulse Rate [Brachial] 81 Respiratory Rate 18 20 18 Blood Pressure [Left Arm] 141/67 O2 Sat by Pulse Oximetry 100 10/04/20 23:56 10/05/20 04:00 10/05/20 08:00 Temperature 98.1 F 98.1 F 98.1 F Pulse Rate Pulse Rate [Brachial] 84 84 91 H Respiratory Rate 18 18 18 Blood Pressure [Left Arm] 184/79 149/70 120/65 O2 Sat by Pulse Oximetry 98 96 97 10/05/20 08:51 10/05/20 09:50 10/05/20 09:51 Temperature Pulse Rate 90 Pulse Rate [Brachial] Respiratory Rate 20 20 Blood Pressure [Left Arm] O2 Sat by Pulse Oximetry 97 10/05/20 11:47 10/05/20 13:40 10/05/20 14:40 Temperature 97.6 F Pulse Rate Pulse Rate [Brachial] 80 Respiratory Rate 18 20 20 Blood Pressure [Left Arm] 145/68 O2 Sat by Pulse Oximetry 98 10/05/20 16:00 10/05/20 16:49 10/05/20 17:49 Temperature 97.6 F Pulse Rate Pulse Rate [Brachial] 76 Respiratory Rate 18 20 20 Blood Pressure [Left Arm] 162/73 O2 Sat by Pulse Oximetry 98 10/05/20 20:00 10/05/20 21:47 10/05/20 22:47 Temperature 97.5 F L Pulse Rate Pulse Rate [Brachial] 78 Respiratory Rate 20 20 20 Blood Pressure [Left Arm] 165/74 O2 Sat by Pulse Oximetry 97 10/06/20 00:00 10/06/20 04:00 10/06/20 08:00 Temperature 98.4 F 97.5 F L 97.8 F Pulse Rate Pulse Rate [Brachial] 92 H 81 81 Respiratory Rate 22 18 13 Blood Pressure [Left Arm] 135/70 166/72 135/62 O2 Sat by Pulse Oximetry 95 95 97 10/06/20 09:37 10/06/20 10:37 10/06/20 12:00 Temperature 98.3 F Pulse Rate Pulse Rate [Brachial] 83 Respiratory Rate 14 14 16 Blood Pressure [Left Arm] 175/81 O2 Sat by Pulse Oximetry 98 10/06/20 13:17 10/06/20 14:17 10/06/20 16:00 Temperature 97.9 F Pulse Rate Pulse Rate [Brachial] 80 Respiratory Rate 14 16 14 Blood Pressure [Left Arm] 147/75 O2 Sat by Pulse Oximetry 97 10/06/20 16:48 10/06/20 17:48 10/06/20 20:00 Temperature 97.4 F L Pulse Rate Pulse Rate [Brachial] 76 Respiratory Rate 18 18 18 Blood Pressure [Left Arm] 157/71 O2 Sat by Pulse Oximetry 98 10/06/20 21:00 10/06/20 21:43 10/06/20 22:43 Temperature Pulse Rate 88 Pulse Rate [Brachial] Respiratory Rate 20 20 Blood Pressure [Left Arm] O2 Sat by Pulse Oximetry 97 10/06/20 23:59 10/07/20 04:00 10/07/20 08:00 Temperature 97.9 F 97.6 F 97.6 F Pulse Rate Pulse Rate [Brachial] 85 78 93 H Respiratory Rate 18 18 15 Blood Pressure [Left Arm] 142/71 150/73 134/72 O2 Sat by Pulse Oximetry 99 96 10/07/20 09:41 Temperature Pulse Rate Pulse Rate [Brachial] Respiratory Rate 16 Blood Pressure [Left Arm] O2 Sat by Pulse Oximetry Labs: Laboratory Last Values WBC 5.7 X10^3/uL (3.6-10.0) 10/07/20 05:12 RBC 4.27 X10^6/uL (3.5-5.4) 10/07/20 05:12 Hgb 10.9 g/dL (12.0-16.0) L 10/07/20 05:12 Hct 33.7 % (36.0-47.0) L 10/07/20 05:12 MCV 78.9 fL (80.0-100.0) L 10/07/20 05:12 MCH 25.5 pg (27.0-34.0) L 10/07/20 05:12 MCHC 32.4 g/dL (33.0-35.0) L 10/07/20 05:12 RDW 15.2 % (11.6-16.5) 10/07/20 05:12 Plt Count 170 X10^3/uL (150.0-450.0) 10/07/20 05:12 MPV 7.5 fL (7.4-11.0) 10/07/20 05:12 Neut % (Auto) 57.8 % (42.0-75.0) 10/07/20 05:12 Lymph % (Auto) 27.4 % (21.0-51.0) 10/07/20 05:12 Long % (Auto) 7.3 % (0.0-13.0) 10/07/20 05:12 Eos % (Auto) 6.4 % (0.9-2.9) H 10/07/20 05:12 Baso % (Auto) 1.1 % (0.2-1.0) H 10/07/20 05:12 Neut # (Auto) 3.3 x10^3/uL (2.2-4.8) 10/07/20 05:12 Lymph # (Auto) 1.6 X10^3/uL (1.3-2.9) 10/07/20 05:12 Long # (Auto) 0.4 x10^3/uL (0.3-0.8) 10/07/20 05:12 Eos # (Auto) 0.4 x10^3/uL (0.0-0.2) H 10/07/20 05:12 Baso # (Auto) 0.1 X10^3/uL (0.0-0.1) 10/07/20 05:12 Absolute Nucleated RBC 0.0 /100WBC 10/07/20 05:12 Sodium 144 mmol/L (136-145) 10/07/20 05:12 Corrected Sodium 148 mmol/L (136-145) H 10/07/20 05:12 Potassium 3.8 mmol/L (3.5-5.1) 10/07/20 05:12 Chloride 108 mmol/L (98-107) H 10/07/20 05:12 Carbon Dioxide 27.3 mmol/L (21-32) 10/07/20 05:12 BUN 8 mg/dL (7-18) 10/07/20 05:12 Creatinine 1.15 mg/dL (0.55-1.02) H 10/07/20 05:12 Est GFR (MDRD) Af Amer 60 (>60) 10/07/20 05:12 Est GFR (MDRD) Non-Af 49 (>60) L 10/07/20 05:12 Glucose 260 mg/dL (65-99) H 10/07/20 05:12 POC Glucose (mg/dL) 245 mg/dL (65-99) H 10/07/20 05:52 Calcium 8.0 mg/dL (8.5-10.1) L 10/07/20 05:12 Corrected Calcium 8.6 mg/dL (8.5-10.1) 10/07/20 05:12 Iron 45 ug/dL (50-175) L 10/07/20 05:12 Transferrin 255 mg/dL (202-364) 10/07/20 05:12 Ferritin 36 ng/mL (8-252) 10/07/20 05:12 Total Bilirubin 0.40 mg/dL (0.2-1.0) 10/07/20 05:12 AST 14 Units/L (15-37) L 10/07/20 05:12 ALT 22 Units/L (12-78) 10/07/20 05:12 Alkaline Phosphatase 79 Units/L (46-116) 10/07/20 05:12 Creatine Kinase 69 Units/L (26-192) 10/03/20 20:46 CK-MB (CK-2) 1.4 ng/mL (0-4.0) 10/03/20 20:46 CK/CKMB % Calc 2.0 % (<4) 10/03/20 20:46 Troponin I < 0.02 ng/mL (0-1.5) 10/03/20 20:46 Total Protein 6.0 g/dL (6.4-8.2) L 10/07/20 05:12 Albumin 3.3 g/dL (3.4-5.0) L 10/07/20 05:12 Globulin 2.7 g/dL (2.5-4.5) 10/07/20 05:12 Albumin/Globulin Ratio 1.2 Ratio (1.1-2.1) 10/07/20 05:12 Vitamin B12 842 pg/mL (193-986) 10/07/20 05:12 Folate 8.4 ng/mL (>8.6) L 10/07/20 05:12 Specimen Type Random urine 10/04/20 00:28 Urine Color Straw (YELLOW) 10/04/20 00:28 Urine Appearance Clear (CLEAR) 10/04/20 00:28 Urine pH 5.0 (5.0 - 8.0) 10/04/20 00:28 Ur Specific [place] 1.015 (1.000-1.030) 10/04/20 00:28 Urine Protein 1+ (NEGATIVE) 10/04/20 00:28 Urine Glucose (UA) 4+ (NEGATIVE) 10/04/20 00:28 Urine Ketones Negative (NEGATIVE) 10/04/20 00:28 Urine Occult Blood 1+ (NEGATIVE) 10/04/20 00:28 Urine Nitrite Positive (NEGATIVE) 10/04/20 00:28 Urine Bilirubin Negative (NEGATIVE) 10/04/20 00:28 Urine Urobilinogen Normal (NORMAL) 10/04/20 00:28 Ur Leukocyte Esterase 2+ (NEGATIVE) 10/04/20 00:28 Urine RBC None seen /HPF (0-3) 10/04/20 00:28 Urine WBC 10-20 /HPF (0-5) A 10/04/20 00:28 Ur Squamous Epith Cells Negative /HPF (NEGATIVE) 10/04/20 00:28 Urine Bacteria 1+ /HPF (NEGATIVE) 10/04/20 00:28 Ur Culture Indicated? No/not indicated 10/04/20 00:28 Stool Description 40g brown soft forme 10/05/20 10:20 Stool Description Brown soft formed 10/05/20 10:20 Stl Occult Blood (IFOB) Positive (NEGATIVE) A 10/05/20 10:20 Stool for White Cells Negative (NEGATIVE) 10/05/20 10:20 Stl C. diff Tox B Gene Negative (NEGATIVE) 10/05/20 10:20 Stl C. diff [id number] Presumptive negative (NEGATIVE) 10/05/20 10:20 Stool H. pylori Ag Negative (NEGATIVE) 10/05/20 10:20 SARS-CoV-2 (PCR) Negative (NEGATIVE) 10/03/20 20:33 Cryptosporid parvum Ag Negative (NEGATIVE) 10/05/20 10:20 Giardia lamblia Ag Negative (NEGATIVE) 10/05/20 10:20 Influenza Type A (PCR) Negative (NEGATIVE) 10/03/20 20:33 Influenza Type B (PCR) Negative (NEGATIVE) 10/03/20 20:33 RSV (PCR) Negative (NEGATIVE) 10/03/20 20:33 Reason For Visit: DIZZINESS, WEAKNESS, UTI Discharge Diagnosis All Active Problems (Updated 10/05/20 @ 09:57 by Yury Leahy) Urinary tract infection (Acute) Abdominal pain (Acute) Lower back pain (Acute) Generalized weakness (Acute) Diabetes mellitus (Chronic) Hyperlipidemia (Chronic) Hypothyroidism (Chronic) Gastroparesis (Chronic) Plan of Treatment: Continue with present treatment and follow up plan. Pt is to keep follow up a ppointment as instructed and take medications as ordered. Discharge Medications Discharge Medications: Penicillins Allergy (Verified 10/03/20 17:33) Sulfa (Sulfonamide Antibiotics) Allergy (Verified 10/03/20 17:35) CONTINUE taking the following medications Lantus Solostar U-100 Insulin 80 unit SUBCUT QHS 10/03/20 [History] erythromycin 250 mg PO AC 10/03/20 [History] gabapentin 300 mg PO BID 10/03/20 [History] insulin aspart U-100 [Novolog Flexpen U-100 Insulin] See Rx Instructions .ROUTE .COMPLEX 10/03/20 [History] levothyroxine [Synthroid] 88 mcg PO DAILY 10/03/20 [History] losartan 50 mg PO DAILY 10/03/20 [History] metformin 500 mg PO BID 10/03/20 [History] omeprazole 40 mg PO BID 10/03/20 [History] rosuvastatin 10 mg PO QHS 10/03/20 [History] tramadol 50 mg PO QID 10/03/20 [History] New Prescriptions ferrous gluconate 324 mg PO DAILYPC 30 Days #30 tab 10/07/20 [Rx] folic acid 1 mg PO DAILY #30 tab 10/07/20 [Rx] Discharge Plan Discharge Plan Patient Disposition: HOME, SELF-CARE Condition: Stable Health Concerns: Post Hospitalization: new medications and changes needed to prevent readmission or further decline. Pt educated and given instructions on all concerns. Plan of Treatment: Continue with present treatment and follow up plan. Pt is to keep follow up appointment as instructed and take medications as ordered. Prescription drug monitoring program results: PDMP reviewed and no concerns identified Prescriptions: New ferrous gluconate 324 mg (38 mg iron) Tablet 324 mg PO DAILYPC 30 Days Qty: 30 RF: 0 folic acid 1 mg Tablet 1 mg PO DAILY Qty: 30 RF: 0 Continued losartan 50 mg tablet 50 mg PO DAILY RF: 0 metformin 500 mg Tablet 500 mg PO BID RF: 0 omeprazole 40 mg capsule,delayed release(DR/EC) 40 mg PO BID RF: 0 tramadol 50 mg Tablet 50 mg PO QID RF: 0 erythromycin 250 mg tablet 250 mg PO AC RF: 0 levothyroxine [Synthroid] 88 mcg tablet 88 mcg PO DAILY RF: 0 gabapentin 300 mg capsule 300 mg PO BID RF: 0 insulin aspart U-100 [Novolog Flexpen U-100 Insulin] 100 unit/mL (3 mL) Insulin Pen See Rx Instructions .ROUTE .COMPLEX RF: 0 rosuvastatin 10 mg tablet 10 mg PO QHS RF: 0 Lantus Solostar U-100 Insulin 100 unit/mL (3 mL) insulin pen 80 unit SUBCUT QHS RF: 0 Follow ups/Referrals Follow ups/Referrals: Yury Leahy [Primary Care Provider] - 1 WEEK Instructions Stand Alone Forms: Excuse From Work or School, Precautions for COVID19, Patient Portal, Social Distancing
[2020-10-07] MEDS ORDERED: FERROUS GLUCONATE PO ONE (10:48)
[2020-10-07] MEDS ORDERED: FERROUS GLUCONATE PO SCH ×2 (11:00→18:00)
[2020-10-07] MEDS ORDERED: FOLIC ACID TAB 1 MG PO SCH (11:00)
== END 2020-10-07 11:25 | disposition home or self-care (01) | DRG 690 ==
LOC: MED/SURG → OBSVTOIN 19:57
PROVIDERS: ADMIT Internal Medicine; ATTEND Internal Medicine
DX: R26.89 Other abnormalities of gait and mobility; E11.65 Type 2 diabetes mellitus with hyperglycemia; E78.2 Mixed hyperlipidemia; R42 Dizziness and giddiness; I95.89 Other hypotension; Z79.4 Long term (current) use of insulin; K31.84 Gastroparesis; Z20.822 Contact with and (suspected) exposure to COVID-19; N30.00 Acute cystitis without hematuria; E03.8 Other specified hypothyroidism; R10.30 Lower abdominal pain, unspecified; M54.5 Low back pain; R53.1 Weakness